=== PATIENT | female | born 1960 | race Caucasian/White ===

== ENCOUNTER → 2017-10-23 16:23 | Outpatient (CLI) | payer OTHER, SELFPAY | PROVIDERS: Family Provider Family Medicine; PCP Family Medicine; Visit Provider Otolaryngology Otolaryngology/Facial Plastic Surgery | DX: J02.9 Acute pharyngitis, unspecified (principal) | CPT/HCPCS: 87070 ==

== ENCOUNTER → 2019-05-21 11:12 | Outpatient (CLI) | payer OTHER, SELFPAY ==
--- NOTE | 2019-05-21 11:16 | US_ITS ---
STUDY: RENAL ULTRASOUND - COMPLETE REASON FOR EXAM: Female, 58 years old. Recurring UTIs TECHNIQUE: Ultrasound evaluation of the kidneys was performed with real-time and static carrera-scale imaging. COMPARISON: None. FINDINGS: RIGHT KIDNEY: Normal location of the right kidney, which is normal in size. The right kidney measures 11.0 x 5.9 x 4.2 cm. There is a normal cortex of the right kidney. The renal cortex measures 1.1 cm. There is no right renal mass or cyst. There are no right renal calculi. There is no right hydronephrosis. DISTAL RIGHT URETER: There is non-visualization of the distal right ureter. There is no demonstrated right ureterovesical junction calculus. There is no demonstrated right ureteral jet. LEFT KIDNEY: Normal location of the left kidney, which is normal in size. The left kidney measures 10.8 x 5.0 x 4.5 cm. There is a normal cortex of the left kidney. The renal cortex measures 1.0 cm. There is no left renal mass or cyst. There are no left renal calculi. There is no left hydronephrosis. DISTAL LEFT URETER: There is non-visualization of the distal left ureter. There is no demonstrated left ureterovesical junction calculus. There is no demonstrated left ureteral jet. BLADDER: The urinary bladder has a volume of 34 ml. There is a normal wall thickness of the distended urinary bladder. There is no demonstrated mass within the urinary bladder. There are no demonstrated bladder calculi. US/Kidney and Bladder IMPRESSION: Normal ultrasound of the kidneys and urinary bladder. Electronically Signed: Balta Hodges MD at 23:36 EDT , Service support ,
== END ==
PROVIDERS: Family Provider Family Medicine; PCP Family Medicine; Referring Provider Urology; Visit Provider Urology
DX: N39.0 Urinary tract infection, site not specified (principal)
CPT/HCPCS: 76770

== ENCOUNTER → 2019-06-21 15:53 | Outpatient (CLI) | payer OTHER, SELFPAY | PROVIDERS: Family Provider Family Medicine; PCP Family Medicine; Referring Provider Otolaryngology Otolaryngology/Facial Plastic Surgery; Visit Provider Otolaryngology Otolaryngology/Facial Plastic Surgery | DX: J02.9 Acute pharyngitis, unspecified (principal) | CPT/HCPCS: 87070 ==

== ENCOUNTER 2019-07-02 07:02 | Day surgery (SDC) | payer OTHER, SELFPAY ==
[2019-07-02 07:21] VITALS: BP 142/88; PULSE 88; RESP 16; TEMP 36.7; O2SAT 96; BMI 30.8
[2019-07-02] MEDS: Vancomycin IV 1,000 MG/200 ML BAG 200 MG IV (07:39)
[2019-07-02] MEDS: Lactated Ringers 1,000 ML 100 ML IV (07:46)
--- NOTE | 2019-07-02 08:35 | PCM.OPRPT ---
Problem List (1) Urinary urgency Status: Acute (2) Nocturia Status: Acute (3) Straining to void Status: Acute Report of Operation Date of Procedure: 07/02/19 Pre-Operative Diagnosis: Urinary urgency, nocturia and straining to void Post-Operative Diagnosis: Same Surgery/Procedure Performed:: InterStim stage I Type of Anesthesia:: MAC Estimated Blood Loss (mL): 5cc Description of Procedure: The patient is a 58-year-old female who noticed decreasing urinary stream and more difficulty with hesitancy and straining to void. She was evaluated in the office with cystoscopy and urodynamics. She agreed to proceed with trial InterStim stage I and informed consent was obtained. The patient was taken to the operating room and placed into a prone position on the operating room table. She was secured to the bed and dependent portions of her body were padded. Anesthesia monitored the head, neck, airway, IV access and vital signs throughout the case. Once anesthesia was probably administered the patient was prepped and draped in usual sterile fashion. The decision was made to use the patient's left side secondary to her sleeping patterns. Using fluoroscopic visualization as a guide, the S3 foramen was intubated following infiltration with lidocaine. Good efe response and toe flexion was obtained. The guidewire was passed through the needle and an incision was made. The dilator was then inserted and then the lead. Good response was obtained on all 4 leads. At this point a pocket site was chosen and infiltrated with lidocaine. It was opened using a knife and cauterized for hemostatic control. The lead was then tunneled into the pocket site and the boot was attached in usual fashion. The lead extension was then attached using the torque wrench. The boot was secured using Prolene suture. The lead extension was then tunneled in a cephalad position. The incisions were closed using interrupted 3-0 Vicryl followed by 4-0 subcuticular suturing and Dermabond. The lead extension was attached to the battery when this was secured to the patient's back using OpSite and tape. There were no complications during this procedure. The patient was then awakened and taken to the recovery room in good condition. Grafts/Implants Used: InterStim lead with lead extension - Complications None - Admit VTE Documentation VTE Present on Admission: No VTE Mechan Device Prophylaxis: None Reason prophylaxis not ordered:: Treatment Not Indicated
--- NOTE | 2019-07-02 08:36 | DCINST_ITS ---
Discharge Diet: No Restrictions Discharge Activity: May not drive while taking narcotic pain medications. Call your doctor if your incision/area has: Continuous Slow Oozing, Sudden Increased Bleeding, Increased Pain/ Swelling, Foul Smelling Discharge Call your doctor if you observe: Fever of 101 or Higher, Inability to urinate, Inability to have a bowel movement, Shortness of breath, Chest pain, Calf discomfort, Uncontrolled pain Cleanse incision/area with: Keep Dressing Clean & Dry Allergies/Adverse Reactions: Allergies codeine Allergy (Verified 07/01/19 08:15) Swelling hydromorphone [From Dilaudid] Adverse Reaction (Verified 07/01/19 08:15) Nausea Medications to take at Discharge Ascorbic Acid [Vitamin C] 1,000 mg PO DAILY 07/01/19 Calcium (Elemental) [Os-Michele 500] 500 mg PO DAILY 07/01/19 Cranberry Fruit Extract [Cranberry] 500 mg PO BID 07/01/19 Fexofenadine/Pseudoephedrine [Leonarda-D 24 Hour Tablet] 1 ea PO DAILY 07/01/19 L.acidoph,Paracasei, B.lactis [Probiotic] 1 ea PO DAILY 07/01/19 Lisinopril/Hydrochlorothiazide [Lisinopril-Hctz 10-12.5 mg Tab] 1 ea PO DAILY 07/01/19 Multivitamin with Minerals [Multiple Vitamin] 1 ea PO DAILY 07/01/19 RX: traZODone [Desyrel] 100 mg PO QHS 07/01/19 Sertraline HCl [Zoloft] 50 mg PO QHS 07/01/19 cycloBENZAPRine HCl [Flexeril] 10 mg PO BID 07/01/19 Primary Care Physician: Benton Nogueira MD [Primary Care Provider] - Test Results: Test results from this visit will be discussed in further detail at your follow- up appointment, if applicable. Please Follow Up With: Susan Escalera MD When: 1 week in the office, call for appt Proposed Discharge Date: 07/02/19
--- NOTE | 2019-07-02 08:50 | RAD_ITS ---
STUDY: X-RAY - PELVIS REASON FOR EXAM: Female, 58 years old. InterStim therapy. TECHNIQUE: One view of the pelvis was obtained. COMPARISON: None. FINDINGS: The electrode of the InterStim therapy is seen in the upper posterior aspect of the right hemipelvis. RAD/Pelvis 1 or 2 Views IMPRESSION: The electrode the InterStim therapy is in the upper posterior aspect of the right hemipelvis. Electronically Signed: Luan Kaiser, at 14:45 EST , Service support ,
[2019-07-02 09:36] VITALS: BP 124/98; BP 142/88; PULSE 81; RESP 16; TEMP 36.8; O2SAT 97
[2019-07-02 09:40] VITALS: BP 142/88; BP 144/86; PULSE 85; RESP 16; O2SAT 97
[2019-07-02 09:45] VITALS: BP 140/82; BP 142/88; PULSE 82; RESP 16; O2SAT 98
[2019-07-02 09:55] VITALS: BP 134/75; BP 142/88; PULSE 81; RESP 16; TEMP 36.6; O2SAT 96
[2019-07-02 11:07] VITALS: BP 142/88
== END 2019-07-02 11:13 | disposition home or self-care (01) ==
LOC: SDC 07:02 → AC 07:04
PROVIDERS: Family Provider Family Medicine; PCP Family Medicine; Referring Provider Urology; Visit Provider Urology
PROC: (CPT 64581; principal; 2019-07-02 08:40)
DX: R39.16 Straining to void (principal); R39.15 Urgency of urination; R35.1 Nocturia; I10 Essential (primary) hypertension; F41.9 Anxiety disorder, unspecified; F32.9 Major depressive disorder, single episode, unspecified; Z78.0 Asymptomatic menopausal state; Z87.440 Personal history of urinary (tract) infections; Z79.899 Other long term (current) drug therapy; Z87.891 Personal history of nicotine dependence
CPT/HCPCS: 00630; 64581; 72170; 76000; J7120; C1778

== ENCOUNTER 2019-07-22 11:54 | Day surgery (SDC) | payer OTHER, SELFPAY ==
[2019-07-22] VITALS (8 sets, daily range): BP systolic 165–187; BP diastolic 90–101; PULSE 81–87; RESP 18; TEMP 36.7–36.9; O2SAT 97–98; BMI 30.8
[2019-07-22] MEDS: Lactated Ringers 1,000 ML 100 ML IV (12:24)
[2019-07-22] MEDS: Vancomycin IV 1,000 MG/200 ML BAG 200 MG IV (12:31)
--- NOTE | 2019-07-22 14:09 | PCM.OPRPT ---
Problem List (1) Urinary urgency Status: Acute (2) Nocturia Status: Acute (3) Straining to void Status: Acute Report of Operation Date of Procedure: 07/22/19 Pre-Operative Diagnosis: Urinary urgency, nocturia, straining to void Post-Operative Diagnosis: Same Surgery/Procedure Performed:: InterStim stage II Type of Anesthesia:: MAC Description of Procedure: The patient is a 58-year-old female who underwent a successful stage I InterStim approximately 2 and half weeks ago. She now presents for implantation of her IPG. Informed consent was obtained. There is no evidence of infection. Patient was taken to the operating room and placed in the prone position on the operating room table. All dependent areas were appropriately padded and she was secured to the table. The tape from the stage I was removed. The battery was cut and a hemostat was placed on the wire. Once anesthesia was appropriately administered, the patient was prepped and draped in usual sterile fashion. Her previous incision over the boot site was opened with a knife and using hemostats and Metzenbaums, the previous sutures were cut. The boot was brought into the operative field and the sutures were cut. The lead was cleaned and inserted into the IPG without difficulty and was then secured using the torque wrench. The pocket was enlarged using blunt dissection and Bovie cautery for hemostatic control. The IPG was then placed into the pocket site and checked for impedances which were appropriate. At this time the incision was closed using 3-0 interrupted Vicryl followed by 4-0 subcuticular and then Dermabond was placed. The lead extension was then removed and bacitracin was applied to the area. The patient was awakened and taken to the recovery room in good condition. There were no complications during this procedure. Grafts/Implants Used: Interstim IPG - Complications none - Admit VTE Documentation VTE Present on Admission: Yes VTE Mechan Device Prophylaxis: SCD's VTE Pharm Prophylaxis ordered?: No Reason prophylaxis not ordered:: Treatment Not Indicated
--- NOTE | 2019-07-22 14:11 | DCINST_ITS ---
Discharge Diet: No Restrictions Discharge Activity: May not drive while taking narcotic pain medications. May resume sexual activity in: 1 week Call your doctor if your incision/area has: Continuous Slow Oozing, Sudden Increased Bleeding, Increased Pain/ Swelling, Increased Redness, Foul Smelling Discharge, Swelling at the incision site Call your doctor if you observe: Fever of 101 or Higher, Inability to urinate, Inability to have a bowel movement, Calf discomfort, Uncontrolled pain Allergies/Adverse Reactions: Allergies codeine Allergy (Verified 07/22/19 12:12) Swelling hydromorphone [From Dilaudid] Adverse Reaction (Verified 07/22/19 12:12) Nausea Medications to take at Discharge Ascorbic Acid [Vitamin C] 1,000 mg PO DAILY 07/01/19 Calcium (Elemental) [Os-Michele 500] 500 mg PO DAILY 07/01/19 Cranberry Fruit Extract [Cranberry] 500 mg PO BID 07/01/19 Fexofenadine/Pseudoephedrine [Leonarda-D 24 Hour Tablet] 1 ea PO DAILY 07/01/19 L.acidoph,Paracasei, B.lactis [Probiotic] 1 ea PO DAILY 07/01/19 Lisinopril/Hydrochlorothiazide [Lisinopril-Hctz 10-12.5 mg Tab] 1 ea PO DAILY 07/01/19 Multivitamin with Minerals [Multiple Vitamin] 1 ea PO DAILY 07/01/19 Sertraline HCl [Zoloft] 50 mg PO QHS 07/01/19 cycloBENZAPRine HCl [Flexeril] 10 mg PO BID 07/01/19 traZODone [Desyrel] 100 mg PO QHS 07/01/19 Cephalexin [Keflex] 500 mg PO Q12 3 Days #6 cap 07/22/19 Oxycodone HCl/Acetaminophen [Percocet 5/325] 2 tab PO Q8H PRN PRN 7 Days #10 tab 07/22/19 The following prescriptions were given: Cephalexin [Keflex] 500 mg PO Q12 3 Days #6 cap Prescription Printed Oxycodone HCl/Acetaminophen [Percocet 5/325] 2 tab PO Q8H PRN PRN 7 Days #10 tab PRN Reason: Pain Prescription Printed Primary Care Physician: Benton Nogueira MD [Primary Care Provider] - Test Results: Test results from this visit will be discussed in further detail at your follow- up appointment, if applicable. Please Follow Up With: Susan Escalera MD When: call office for appt to be seen in 3-4 weeks Proposed Discharge Date: 07/22/19
[2019-07-22] MEDS: Acetaminophen 325 MG Tablet PO (15:45)
[2019-07-22] MEDS: oxyCODONE 5 MG Tablet PO (15:45)
== END 2019-07-22 17:21 | disposition home or self-care (01) ==
LOC: SDC 11:54 → AC 11:55
PROVIDERS: Family Provider Family Medicine; PCP Family Medicine; Referring Provider Urology; Visit Provider Urology
PROC: (CPT 64590; principal; 2019-07-22 13:55)
DX: R39.15 Urgency of urination (principal); R35.1 Nocturia; R39.16 Straining to void; I10 Essential (primary) hypertension; F32.9 Major depressive disorder, single episode, unspecified; F41.9 Anxiety disorder, unspecified; Z79.899 Other long term (current) drug therapy; Z87.891 Personal history of nicotine dependence
CPT/HCPCS: 00300; 64590; J7120; C1767; J2405

== ENCOUNTER 2019-09-11 16:30 | Outpatient (RCR) | payer OTHER, SELFPAY ==
[2019-07-22 12:14] VITALS: BMI 30.8
--- NOTE | 2019-08-20 10:55 | HP.PTEVAL_ITS ---
Patient's Visit Information PRATIK BAZZI is a 58 year old F referred to Physical Therapy by Ron Clemons DO with a diagnosis of OA, Pain in R knee and hip. Date of Evaluation: 08/20/19 Physical Therapist: MOISE Samuel - Visit Plan Frequency: 2x /Week Duration: 4 Weeks Plan: 2X/ week for AT for stretching of hip flexors, gastroc and HS. Strengthening of glutes and abs and overall LE strength and core strength and postural exercises with HEP - Subjective Findings: Pt reports that she has pain in B hips, the day she was in the Dr office it was the right and now it is in the L and goes back and forth. This has been going on for about a year and worse over the last 6 months. She reports that at times she gets a sharp pain and feels that her leg will give out. She feel that something is snapping if she turns and it is painful. She has no N&T. She has back pain all the time. There are times when both hurt at the same time. No groin pain. She has B knee pain and it is hard to squat and they crack. Painful on the stairs. She sits most of the time at work. She just had an implant put in.... stimulator to help her pee after her hysterectomy. She has no restrictions with that.... - Pain L hip pain Pain Intensity (Out of 10): 2 R hip pain Pain Intensity (Out of 10): 0 back pain Pain Intensity (Out of 10): 2 - Objective Gait: Walks with a normal gait patterm.. Lumbar shift to the L. LE MMT: B hip flex 4-/5, B knee ext 4/5, R knee flex 4/5, L knee fle 4-/5, B hip ext 3+/5, B hip abd 4-/5. Pt is able to walk on heels and toes without difficulty. Trunk AROM: flexion 50%, ext 25%, SB B 50%, Rot B 50%. Patella DTR: R 0/3 and L 2+/3. +SLUMP test for pain on the R side with B testing. Tight HS and really tight hip flexor. Good piriformis length. Palpation: tender over B SI areas - Goals Goal 1:: I HEP Goal Time Frame: 4-6 Weeks Goal 2:: Decrease overall pain by 50% in B hips and back Goal Time Frame: 4-6 Weeks Goal 3:: Increase hip flexor, HS, Quad flexability Goal Time Frame: 4-6 Weeks Goal 4:: Increase LE MMT by 1/2 muscle grade ( at time of eval: LE MMT: B hip flex 4-/5, B knee ext 4/5, R knee flex 4/5, L knee fle 4-/5, B hip ext 3+/5, B hip abd 4-/5. Pt is able to walk on heels and toes without difficulty). Goal Time Frame: 4-6 Weeks - Rehabilitation Potential Rehabilitation Potential: Good - Anticipated Interventions Patient/Client Instruction: Educate patient on: Condition, Plan of Care For the Purpose of:: To decrease pain, To increase ROM, To improve nutrient delivery to tissue, To improve muscle performance and motor function, To improve ability to perform ADL's, To increase tolerance to activity/condition/position, To improve performance and independence with ADL's, To improve ability of physical actions for home/community/work/leisure, To improve health of tissue, To decrease soft tissue restriction, To increase flexibility/ROM Therapeutic Exercise to Include: Strength training, Body mechanics, Postural training, Flexibilty training, Neuromotor development, In an aquatic setting, Passive ROM, Active ROM, Dynamic Lumbar Stabilization, Scapular St rength/Stabilization For the Purpose of:: To decrease pain, To increase ROM, To improve nutrient delivery to tissue, To improve muscle performance and motor function, To improve ability to perform ADL's, To increase tolerance to activity/condition/position, To improve performance and independence with ADL's, To decrease level of supervision to perform tasks, To improve ability of physical actions for home/community/work/leisure, To improve health of tissue, To decrease soft tissue restriction, To increase flexibility/ROM Thank you for the opportunity to evaluate your patient. For Medicare and Medicare HMO plans, please review the plan of care and approve it. It will need to be FAXED BACK to us at [phone] for Medicare purposes. For Medicare only, by signing this I certify the plan of care. Please let me know if there are questions or concerns regarding this plan of care. Physician Signature: Date:
--- NOTE | 2019-09-11 16:51 | HP.PTDCSUM ---
- PT D/C Summary It has been my pleasure to treat PRATIK BAZZI under orders from Ron Clemons DO, for the diagnosis of OA, Pain in R knee and hip for a total of 9 visit(s). Discharge Date: 09/11/19 Please see the following information for a summary of their discharge status. - Subjective Subjective: Pt has a lot of pain and she sits a lot at work. She reports that she has a lot of cracking in her back and some snapping now. SHe did extra on Monday and paying for it today. 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 Mild OA shown on x-ray of hips. She has had improvement in learning how to hold herself correctly and ab and leg strength improved 50%. Knees are somewhat better too. The pain in her knees seems to be a little better..... no change in hip pain. Pt wants to join and do AT here at . She had a fusion of 12 vertebrea fused together T4-L2 due to scoliosis in 1996. - Pain L hip pain Pain Intensity (Out of 10): 4 R hip pain Pain Intensity (Out of 10): 2 back pain Pain Intensity (Out of 10): 4 BLAT Knees Pain Intensity (Out of 10): 0 - Overall Improvement % Improvement: 50 - Objective Objective/Function: LE MMT: B hip flex 4/5, B knee ext 4+/5, R knee flex 4+/5, L knee flex 4/5, B hip ext 3+/5, B hip abd 4/5. Improved flexibility in HS, Quad but still extrememly tight. Pt very guarded in her movements with transfers. - Goals Goal 1:: I HEP Goal Progress: Goal Met Goal 2:: Decrease overall pain by 50% in B hips and back Goal Progress: Not Progressing Goal 3:: Increase hip flexor, HS, Quad flexability Goal Progress: Progressing Goal 4:: Increase LE MMT by 1/2 muscle grade ( at time of eval: LE MMT: B hip flex 4-/5, B knee ext 4/5, R knee flex 4/5, L knee fle 4-/5, B hip ext 3+/5, B hip abd 4-/5. Pt is able to walk on heels and toes without difficulty). - Plan Plan: Pt to go back to as she feels stronger and her knees is better (50%) but her hip pain is not any better. AT relieves for about 24 hours or less but then it comes right back. Pt reports that she can not have an MRI unless they take out her bladder stimulator that was placed in . 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 DC PT at this time. - D/C Information Discharge Comments: DC PT If there are questions or concerns regarding this patient's physical therapy, please feel free to call me at [phone]. Thank you for the referral of this patient. Sincerely, Ebony Ward, MPT
== END 2019-09-11 19:00 | disposition home or self-care (01) ==
LOC: PT 16:30
PROVIDERS: PCP Family Medicine; Referring Provider Student in an Organized Health Care Education/Training Program; Visit Provider Student in an Organized Health Care Education/Training Program
DX: M19.90 Unspecified osteoarthritis, unspecified site (principal)
CPT/HCPCS: 97113; 97162; 97164

== ENCOUNTER → 2021-02-26 12:25 | Outpatient (CLI) | payer OTHER, SELFPAY ==
[2019-07-22 12:14] VITALS: BMI 30.8
--- NOTE | 2021-02-26 13:02 | RAD_ITS ---
STUDY: FLUOROSCOPICALLY GUIDED LUMBAR PUNCTURE REASON FOR EXAM: Female, 60 years old. SPINAL STENOSIS, contrast injection for CT RADIATION DOSAGE (If Supplied By Facility): CTDIvol = ( ) mGy, DLP = ( ) mGycm. Individualized dose optimization techniques were used for this CT.? FLUOROSCOPY TIME (if supplied): ( 2:00 ) minutes/seconds TECHNIQUE: Fluoroscopically guided COMPARISON: None. FINDINGS: After informed consent was obtained, the patient was placed in the prone position on the fluoroscopic table and appropriate site for lumbar puncture was determined using fluoroscopy. The site at the L4-5 disc space was marked. The site was then prepped and draped in a sterile manner and 2% XYLOCAINE was used as local anesthetic. Under fluoroscopic guidance, a 22-gauge spinal needle was advanced into the central canal and clear CSF return was noted. No CSF was obtained, study instead was to inject 12 mL of ISOVUE-200 M contrast into the thecal sac for further evaluation with CT. Patient tolerated the procedure well with no immediate complications and was sent to CT for subsequent imaging. RAD/Lumbar Myelogram IMPRESSION: Successful fluoroscopically guided lumbar puncture Electronically Signed: Lonnie Vu MD at 14:56 EDT , Service support ,
[2021-02-26 13:05] VITALS: BP 202/106; PULSE 81; RESP 16; O2SAT 99; BMI 31.1
[2021-02-26] MEDS: Lidocaine 2% (5ml sdv) 5 ML VIAL.MPF ×2 (13:18→13:30)
[2021-02-26 14:20] VITALS: BP 178/89; PULSE 78; RESP 18; O2SAT 99
--- NOTE | 2021-02-26 14:35 | CT_ITS ---
STUDY: CT LUMBAR SPINE WITH CONTRAST-CT myelogram REASON FOR EXAM: Female, 60 years old. SPINAL STENOSIS RADIATION DOSAGE (If Supplied By Facility): CTDIvol = ( 17.98 ) mGy, DLP = ( 544.91 ) mGycm TECHNIQUE: The patient was scanned in a multi detector CT scanner. High resolution transaxial imaging was performed following the intrathecal administration of 12 mL ISOVUE 200. Images were obtained from lower thoracic spine to mid sacrum. Sagittal and coronal images were reconstructed. Individualized dose optimization techniques were used for this CT. COMPARISON: None FINDINGS: Normal lumbar lordosis. There is no substantial scoliosis. Normal vertebrae of the lumbar spine. L1-2: Normal endplates. Normal disc height and morphology. Normal bilateral facet joints. Normal central canal and bilateral lateral recesses. Normal bilateral intervertebral neural foramina. L2-3: Anterior spondylosis with broad posterior disc bulging, facet arthropathy and ligamentum flavum hypertrophy mildly narrowing the spinal canal and thecal sac with AP diameter measuring 9.6 mm. No significant foraminal stenosis. L3-4: Mild anterior spondylosis with broad posterior disc bulging and mild ligamentum flavum hypertrophy mildly narrows the thecal sac (AP diameter 9.4 mm). Mild bilateral foraminal narrowing. L4-5: Slight anterolisthesis due to bilateral facet arthropathy. Broad posterior disc bulging with ligamentum flavum hypertrophy and facet arthropathy narrowing and flattening the thecal sac with AP dimension measuring 5 mm (image 62 series 2). Mild bilateral foraminal narrowing. L5-S1: Broad posterior disc bulging without significant canal stenosis or thecal sac narrowing. No significant foraminal stenosis. Neurostimulator device extends anterior to the left side of the sacrum. Defect of the right ilium likely postoperative/prior graft site). 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 CT/Spine Lumbar WITH Contrast IMPRESSION: 1. Multilevel degenerative disc disease, facet arthropathy and ligamentum flavum flavum hypertrophy with canal stenosis most severe at L4-L5. Details above. 2. Operative changes of the thoracolumbar junction (posterior) Electronically Signed: Vishnu Gonzalez MD ([place]) at 15:53 EDT , Service support ,
== END | disposition home or self-care (01) ==
PROVIDERS: PCP Student in an Organized Health Care Education/Training Program; Referring Provider Orthopaedic Surgery; Visit Provider Orthopaedic Surgery
DX: M48.061 Spinal stenosis, lumbar region without neurogenic claudication (principal)
CPT/HCPCS: 62304; 72132; Q9965